=== PATIENT | male | born 1980 | race Caucasian/White ===

== ENCOUNTER → 2020-07-20 | Outpatient (CLI) | payer OTHER ==
[~2020-07-20] MED LIST: BROMFED DM COU473 ML PO; COLACE100 MG PO; DRISDOL1250 MCG PO; HYDROCODON-ACE1 EAC2 PO; IBU400 MG PO
[2020-07-20 12:53] LABS: HEMOGLOBIN 17.3 gm/dl (14.0-17.5); RED BLOOD COUNT 5.33 M/UL (4.20-5.50); WHITE BLOOD COUNT 8.6 K/UL (4.5-11.0)
[2020-07-20 13:19] LABS: BUN/CREATININE RATIO 8 (0-10)
[2020-07-21 09:13] LABS: VITAMIN D, 25-HYDROXY 18.5 ng/mL (30.0-100.0)
[2020-07-21 12:13] LABS: THYROXINE (T4) 9.2 ug/dL (4.5-12.0)
== END ==
LOC: LAB 11:57
PROVIDERS: Nurse Practitioner Family
DX: E78.5 Hyperlipidemia, unspecified (principal); R10.9 Unspecified abdominal pain; R53.83 Other fatigue; E55.9 Vitamin D deficiency, unspecified; R51.9 Headache, unspecified
CPT/HCPCS: 36415; 80053; 80061; 84436; 84443; 84480; 85025

== ENCOUNTER → 2020-07-25 | Outpatient (CLI) | payer OTHER | LOC: RAD 14:35 | DX: M54.9 Dorsalgia, unspecified (principal); R31.9 Hematuria, unspecified | CPT/HCPCS: 74018 ==

== ENCOUNTER 2020-07-27 09:26 | Observation (INO) | payer OTHER ==
[~2020-07-27] VITALS: Ht 175.3 cm; Wt 76.2 kg
[~2020-07-27 09:26] MED LIST changes: -COLACE100 MG PO; -HYDROCODON-ACE1 EAC2 PO
[2020-07-27 09:56] LABS: HEMOGLOBIN 17.5 gm/dl (14.0-17.5); RED BLOOD COUNT 5.34 M/UL (4.20-5.50); WHITE BLOOD COUNT 8.1 K/UL (4.5-11.0)
[2020-07-27 10:24] LABS: BUN/CREATININE RATIO 9 (0-10)
--- NOTE | 2020-07-27 17:24 | NUR ---
PT REFUSED TO TRY A NICOTINE PATCH. STATED IF HE COULD NOT GO DOWN AND SMOKE, HE WAS GOING TO LEAVE AMA. PT IS RECOVERING FROM AN APPENTECTOMY.PT HAS BEEN MADE AWARE OF DANGERS OF GOING DOWN AND HAS CHOSEN GO DOWN AGAINST NURSE RECOMMENDATIONS. PT IS WITH PARTNER IN A WHEELCHAIR.
[2020-07-28] MEDS ORDERED: COLACE100 MG PO (08:45)
[2020-07-28] MEDS ORDERED: HYDROCODON-ACE1 EAC2 PO (08:45)
--- NOTE | 2020-07-28 10:16 | NUR ---
EDUCATED ON DISCHARGE WITH PATIENT INSTRUCTIONS ON LAPROSCOPIC APPY AND ON NEW MEDICATIONS WHICH WERE BOTH SENT TO THEIR PREFERRED PHARMACY. VERBALIZED UNDERSTANDING.
== END 2020-07-28 10:21 | disposition home or self-care (01) ==
LOC: ER1 09:26 → CDU 12:50 → M/S 17:30
PROVIDERS: Physician Assistant; ADMIT Surgery
PROC: 0DTJ4ZZ Resection of Appendix, Percutaneous Endoscopic Approach (ICD-10-PCS; principal; 2020-07-27 14:53)
DX: K36 Other appendicitis (principal); K38.8 Other specified diseases of appendix; F17.210 Nicotine dependence, cigarettes, uncomplicated; Z79.1 Long term (current) use of non-steroidal anti-inflammatories (NSAID); Z20.822 Contact with and (suspected) exposure to COVID-19; Z79.899 Other long term (current) drug therapy
CPT/HCPCS: 76870; 80053; 81001; 85025; 87635; 96365; 96375; 99285; G0378; J1885; J2001; J2250; J2405; J2543; J2704; J2710; J3010; J3480; J7030; J7120; Q9967

== ENCOUNTER → 2021-04-20 | Outpatient (CLI) | payer OTHER ==
[~2021-04-20] MED LIST changes: +COLACE100 MG PO; +HYDROCODON-ACE1 EAC2 PO
[2021-04-20 15:03] LABS: HEMOGLOBIN 17.1 gm/dl (14.0-17.5); RED BLOOD COUNT 5.38 M/UL (4.20-5.50); WHITE BLOOD COUNT 7.4 K/UL (4.5-11.0)
[2021-04-20 15:28] LABS: BUN/CREATININE RATIO 12 (0-10)
[2021-04-21 07:12] LABS: VITAMIN D, 25-HYDROXY 18.8 ng/mL (30.0-100.0)
[2021-04-21 09:13] LABS: THYROXINE (T4) 8.1 ug/dL (4.5-12.0)
== END ==
LOC: LAB 13:41
PROVIDERS: Nurse Practitioner
DX: Z72.0 Tobacco use (principal); E55.9 Vitamin D deficiency, unspecified; R53.83 Other fatigue; E78.5 Hyperlipidemia, unspecified; G44.52 New daily persistent headache (NDPH); M85.88 Other specified disorders of bone density and structure, other site
CPT/HCPCS: 71046; 80053; 80061; 81001; 84436; 84443; 84480; 85025

== ENCOUNTER 2021-12-09 12:05 | Emergency (ER) | payer OTHER | END 2021-12-09 12:13 | disposition left against medical advice (07) | LOC: ER1 12:05 | DX: Z53.21 Procedure and treatment not carried out due to patient leaving prior to being seen by health care provider (principal) ==